=== PATIENT | female | born 1990 | race African-American/Black ===

== ENCOUNTER 2017-01-01 03:37 | Emergency (ER) | payer MEDICAID ==
[~2017-01-01] VITALS: Ht 177.8 cm; Wt 100.0 kg
[2017-01-01] MEDS ORDERED: KETOROLAC 60MG/2ML VIAL IM ONE (05:15)
[2017-01-01 05:30] VITALS: BP 142/83
== END 2017-01-01 06:26 | disposition home or self-care (01) ==
LOC: ER 03:53
DX: R51 Headache (principal); F12.10 Cannabis abuse, uncomplicated; Z87.891 Personal history of nicotine dependence
CPT/HCPCS: 96372; 99283; J1885; Z7610